=== PATIENT | female | born 1950 | race Caucasian/White ===

== ENCOUNTER 2024-04-25 07:04 | Day surgery (SDC) | payer OTHER ==
[~2024-04-25] VITALS: Ht 157.5 cm; Wt 88.9 kg
[2024-04-25] VITALS (10 sets, daily range): BP systolic 90–158; BP diastolic 45–74; PULSE 76–87; RESP 15–19; TEMP 97.3–97.6
[~2024-04-25 07:04] MED LIST: AREDS VITAMIN PO; ATOR40TA69 PO; CETI10TA57 PO; CLOP75TA32 PO; FLUT16H NASAL; HYDR-3421 PO; LEVO-172 PO; LISI40TA9 PO; METO25TA6 PO; TYLENOL ARTHRITIS PO; VITAMIN D PO
[2024-04-25] MEDS: 0.9%NACL 1000ML 1,000 ML IV ONE (09:08)
[2024-04-25] MEDS ORDERED: proPOFol 10 MG/ML 20ML VIAL IV ONE ×2 (11:23→11:36)
== END 2024-04-25 12:45 | disposition home or self-care (01) ==
LOC: DAH 07:04 → ENDO 07:04
PROVIDERS: ATTEND Internal Medicine Gastroenterology
DX: C16.2 Malignant neoplasm of body of stomach (principal); K25.0 Acute gastric ulcer with hemorrhage; K31.89 Other diseases of stomach and duodenum; I10 Essential (primary) hypertension; M19.90 Unspecified osteoarthritis, unspecified site; E78.5 Hyperlipidemia, unspecified; Z86.73 Personal history of transient ischemic attack (TIA), and cerebral infarction without residual deficits; Z90.49 Acquired absence of other specified parts of digestive tract; Z90.710 Acquired absence of both cervix and uterus; Z95.0 Presence of cardiac pacemaker
CPT/HCPCS: 43259; 43239; 43236; J7030 ×2; J2704 ×2; A4620; A4215; A4223; A7002; A4222; A4221; A4663; A4606; J3490

== ENCOUNTER 2024-06-04 09:00 | Inpatient (IN) | payer OTHER ==
[2024-06-03 13:01] LABS: BASOPHILS # (AUTO) 0.02 K/uL (0.00-0.20); BASOPHILS % (AUTO) 0.2 % (0.0-5.0); EOSINOPHILS % (AUTO) 2.2 % (0.0-8.0); HEMATOCRIT 38.3 % (36-48); IMMATURE GRANULOCYTE ABSOLUTE 0.01 K/uL (0-1); LYMPHOCYTES # (AUTO) 5.3 K/uL (1.0-4.8); MEAN CORPUSCULAR HGB CONC 32.9 g/dL (32.0-36.0); MEAN CORPUSCULAR VOLUME 94.3 fL (79-99); MONOCYTES # (AUTO) 0.6 K/uL (0.1-1.0); MONOCYTES % (AUTO) 6.7 % (3.0-13.0); NEUTROPHILS # (AUTO) 2.9 K/uL (1.8-7.7); NEUTROPHILS % (AUTO) 31.8 % (40.0-77.0); PLATELET COUNT (AUTO) 213 K/uL (130-400); RED BLOOD CELL COUNT(AUTO) 4.06 MIL/uL (4.00-5.50); RED CELL DISTRIBUTION WIDTH 13.5 % (11.0-15.5)
[2024-06-03 13:07] LABS: CREATININE 0.7 mg/dL (0.5-1.0); POTASSIUM 4.1 mmol/L (3.5-5.1)
[2024-06-03 13:11] LABS: INR 1.03 (0.85-1.15); PROTHROMBIN TIME 11.5 SEC (9.6-11.6)
[2024-06-03 13:13] LABS: PARTIAL THROMBOPLASTIN TIME 26.7 SEC (26.3-35.5)
[2024-06-03 13:14] VITALS: BP 134/68; PULSE 73; RESP 14; TEMP 98.2
[2024-06-03 14:30] LABS: EOSINOPHILS % (MANUAL) 4 % (1-6); LYMPHOCYTES % (MANUAL) 52 % (22-44); MAN.DIFF COMMENT-IMPRESSION MANUAL DIFFERENTIAL; MONOCYTES % (MANUAL) 4 % (2-9); PLATELET MORPHOLOGY COMMENT ADEQUATE; REACTIVE LYMPHOCYTES 7 % (0-0); SEGMENTED NEUTROPHILS % 33 % (40-70); TOTAL CELLS COUNTED 100
--- NOTE | 2024-06-03 15:16 | EKG ---
[facility] Test Date: 2024-06-03 Test Time: 13:32:25 Pat Name: GURVINDER SANDERS Department: Patient ID: [id number] Room: Gender: F Legal Associate: [id number] : 1950 Requested By: SUNDAR STONE Order Number: [id number] Reading MD: Miguelangel Pacheco Measurements Intervals [place] Rate: 71 P: 31 MS: 144 QRS: 13 QRSD: 86 T: 31 QT: 383 QTc: 418 Interpretive Statements Sinus rhythm Compared to ECG 06/23/2021 12:45:15 No significant changes Electronically Signed On 06-04-2024 17:06:55 [employer]AIL [employer]NAGEMENT TRAINEE by Miguelangel Pacheco Please click the below link to view image of tracing.
[~2024-06-04] VITALS: Ht 160 cm; Wt 89.8 kg
[~2024-06-04 09:00] MED LIST changes: -AREDS VITAMIN PO; -CETI10TA57 PO; -HYDR-3421 PO; -TYLENOL ARTHRITIS PO; -VITAMIN D PO
[2024-06-04] MEDS ORDERED: ACET-2521 PO (16:30)
[2024-06-04] MEDS ORDERED: CHOL200074 PO (16:30)
[2024-06-04] MEDS ORDERED: VIT1CAPS5 PO (16:30)
[2024-06-04] MEDS ORDERED: ICOS1CAP2 PO (16:30)
[2024-06-04] MEDS ORDERED: CALC-1294 PO (16:30)
[2024-06-04] MEDS ORDERED: MULT-1258 PO (16:30)
[2024-06-04] MEDS ORDERED: SUCR1TAB2 PO (16:30)
[2024-06-04] MEDS ORDERED: ASPI-1443 PO (16:30)
[2024-06-04] MEDS ORDERED: PANT40TA54 PO (16:30)
[2024-06-06] VITALS (27 sets, daily range): BP systolic 115–167; BP diastolic 57–89; PULSE 70–113; RESP 15–20; TEMP 97.3–98.4; O2SAT 98
[2024-06-06] MEDS: LACTATED RINGERS 1000ML 1,000 ML IV ONE (10:17)
[2024-06-06] MEDS: SCOPOLAMINE HYDROBROMIDE 1 EACH ADH..PATCH TD ONE (10:17)
[2024-06-06] MEDS: ceFAZolin SODIUM 2 GM VIAL ONE (10:18)
[2024-06-06] MEDS ORDERED: BUPIvacaine/PF 0.5% 30ML VIAL ONE (10:43)
[2024-06-06] MEDS ORDERED: ketaMINE 50MG/ML SYRINGE 50 MG/ML DISP.SYRIN ONE (11:28)
[2024-06-06] MEDS ORDERED: LIDOCAINE PF 100MG/5ML (2%) SYRINGE 5ML ONE (11:43)
[2024-06-06] MEDS ORDERED: proPOFol 10 MG/ML 20ML VIAL IV ONE (11:43)
[2024-06-06] MEDS ORDERED: rocuRONium bROMide 10MG/1ML 5ML VL ONE ×2 (11:43→13:29)
[2024-06-06] MEDS ORDERED: FENTanyl CITRate PF 50 MCG/1 ML 2ML VIAL ONE (11:44)
[2024-06-06] MEDS ORDERED: ondanSETRON 4MG INJ ONE (12:03)
[2024-06-06] MEDS ORDERED: dexaMETHasone SOD PHOSPHATE 10MG/ML 1ML VIAL ONE (12:03)
[2024-06-06] MEDS: ceFAZolin SODIUM 2 GM VIAL IVPB ONE (12:17)
[2024-06-06] MEDS ORDERED: NEOSTIGMINE METHYLSULFATE 1MG/ML IV ONE (12:32)
[2024-06-06] MEDS ORDERED: GLYCOPYRROLATE 0.2 MG/ML 5 ML VIAL ONE (12:32)
--- NOTE | 2024-06-06 17:25 | OP ---
Operative Note: DATE OF PROCEDURE: 06/06/24 SURGEON: SUNDAR STONE MD COP EXAMINER: Loyd Stone MD PA-C ANESTHESIA: General and Local ANESTHESIOLOGIST/COGENERATION OPERATOR: [facility] anesthesia team PREOPERATIVE DIAGNOSIS: Known Gastric Malignancy POSTOPERATIVE DIAGNOSIS: As above SYNOPSIS: Subtotal, distal gastrectomy with Bilroth II gastro-jejunostomy without complication PROCEDURE: 1. Robotic assisted Subtotal, distal gastrectomy with Bilroth II gastro-jejunostomy 2. Omental patch to duodenal stump 3. Omental patch to gastro-jejunostomy 4. EGD ESTIMATED BLOOD LOSS: min, <40cc INDICATIONS: As above DESCRIPTION OF PROCEDURE: After standard preparations a veress needle and optical trocar were used to enter the abdomen and the rest of the instruments were placed under direct vision. We used the EGD scope to assess the area of the known gastric cancer, appeared confined to the antrum. There was appearance of direct tumor invasion through the serosa in to the surrounding fatty tissue. There was not evidence of distant disease away from the local site. We began by using bipolar to resect the gastrocolic and gastrohepatic ligaments so that they would remain as part of the en bloc specimen. There was an area near the lesser curve posterior gastric wall that was quite adherent to the retroperitoneal fat. This was dissected free to allow the specimen to be fully mobilized. We utilized a linear stapler with reinforcement to divide the stomach. Proximal margin in the distal/mid gastric body. Distal margin in the area of the 1st portion of the duodenum/pylorus. The specimen was removed (wound protector was used) and sent for pathologic inspection. Frozen section demonstrated the appearance of clear distal and proximal margins with some concern for invasion past the serosa to the perigastric fat. We identified the ligament of treitz and proceeded distally along the proximal jejunum to approximately 50-60cm and brought the loop up to the distal gastric pouch. A stapled anastomosis was made. The defect left behind by the stapler was sutured closed in 2 layers. An omental patch was placed on the gastrojejunostomy. A 2nd omental patch, and fibrin sealant were placed on the duodenal stump. A drain was left in the abdomen. All instrument counts were verified as correct prior to ending the case. The fascia was closed at the specimen extraction site. EGD demonstrated patent anastomosis and healthy, well perfused gastric and jejunal mucosa. SUNDAR STONE MD Jun 06, 2024 17:24
[2024-06-06] MEDS: MEPERIDINE-PF 25 MG/ML SYG ONE ×2 (17:51→17:55)
[2024-06-06] MEDS: hydroMORPHone 0.5 MG SYG (0.5MG/0.5ML) IVP PRN (19:13)
[2024-06-06] MEDS: ketOROlac 15MG/ML VIAL (15MG/ML) IV PRN (21:02)
[2024-06-06] MEDS: ENOXAPARIN SODIUM 30 MG/0.3 ML SQ SCH (21:03)
[2024-06-06] MEDS: LACTATED RINGERS 1000ML 1,000 ML IV SCH (21:08)
[2024-06-07] VITALS (7 sets, daily range): BP systolic 115–146; BP diastolic 68–83; PULSE 95–111; RESP 18–20; TEMP 98.4–99.1; O2SAT 94–97
--- NOTE | 2024-06-07 00:31 | NUR ---
pt in pain and unable to perform IS Addendum: 06/07/24 at 0032 by RULA SUAREZ RT RT Amended: Links added.
[2024-06-07] MEDS: SUGAMMADEX SODIUM 200 MG/2 ML VIAL IV ONE (09:10)
[2024-06-07] MEDS: FAMOTIDINE 20MG VIAL IV ONE (09:10)
[2024-06-07] MEDS: acetaMINOPHEN 100 ML ONE (09:10)
[2024-06-07] MEDS ORDERED: DIATR MEGLU/DIATRIZOATE SODIUM 30 ML BOTTLE ONE (09:11)
[2024-06-07] MEDS: FAMOTIDINE 20MG VIAL IV SCH (09:11)
[2024-06-07] MEDS: ENOXAPARIN SODIUM 30 MG/0.3 ML SQ SCH (09:17)
--- NOTE | 2024-06-07 09:36 | PN ---
GENERAL SURGERY PROGRESS NOTE Date/Time Patient Seen: [June 07, 2024 at 9:15 a.m. ] Problem List: [ ] Interval History: [ The patient is a pleasant 74-year-old female status post robotic assisted subtotal, distal gastrectomy with Billroth II gastrojejunostomy, omental patch to duodenal stump and omental patch to gastric jejunostomy. The patient is accompanied by family. The patient tolerated the procedure well. Currently with a PAULETTE drain to the right upper quadrant in place draining over 50 cc of serosanguineous fluid overnight. The patient is currently NPO and is pending upper GI series study. The patient endorses pain 8/10 to the epigastric region as well as incisional pain. The patient is currently cycling through pain medications without much improvement. The patient has been voiding and has not had any oral intake of fluids due to nausea. The patient endorses dizziness and fatigue likely associated with poor oral intake and hydration. No other concerns.] Current Medications Medications (Trade) Dose Ordered Sig/Radha Route Start Time Stop Time Status Last Admin Dose Admin Enoxaparin Sodium (Lovenox) 30 mg Q12H SQ 06/06/24 16:00 06/07/24 03:41 DC 06/06/24 21:03 30 MG Enoxaparin Sodium (Lovenox) 30 mg Q12H SQ 06/07/24 09:00 07/07/24 08:59 06/07/24 09:17 30 MG Famotidine (Pepcid 20mg Vial) 20 mg BID IV 06/07/24 09:00 07/07/24 08:59 06/07/24 09:11 20 MG Lactated Ringer's 1,000 ml @ 100 mls/hr Q10H IV 06/06/24 16:00 07/06/24 15:59 06/07/24 05:49 100 MLS/HR Physical Examination: GENERAL: [No acute distress.] HEAD: [Normal with no signs of head trauma.] EYES: [PERRLA, EOMI, conjunctiva and sclera normal.] ENT: [Hearing grossly intact, normal oropharynx.] NECK: [Supple without JVD. There is no tenderness, lymphadenopathy, or masses. No thyromegaly. Normal carotid upstrokes without bruits.] LUNGS: [Clear breath sounds bilaterally. There are right basilar rales one third of the way up the chest. No wheezes, or rhonchi.] HEART: [Normal rate and rhythm. Normal S1 and S2 without mumurs, gallop or rub.] VASC: [Peripheral pulses +2 bilaterally.] ABD: [Bowel sounds normal, soft, nontender, no masses, no organomegaly. No audible bruits.] : [Not examined] LYMPH: [No lymphadenopathy noted.] EXT: [No clubbing, cyanosis or edema.] SKIN: [No rashes or lesions noted.] NEURO: [Awake, alert, and oriented x3. No focal sensory or strength deficits noted.] Vital Signs (last 8hr) Date Time Temp Pulse Resp B/P (MAP) Pulse Ox O2 Delivery O2 Flow Rate FiO2 06/07/24 08:00 98.4 103 18 115/76 97 06/07/24 03:54 98.4 107 20 119/70 93 Room Air Laboratory: [ ] Impression and Plan: [ The patient is postoperative day 1. The patient is progressing slowly but well. We will continue to monitor and treat pain as needed. GI/DVT prophylaxis recommended and encouraged. Continue SCDs, assisted ambulation, and incentive spirometry. Advance to a liquid diet after upper GI series study complete. Due to pain out of proportion and pending upper GI series study I recommend we keep the patient overnight for observation. We will monitor PAULETTE drain output, upper GI results and pain management. We will follow up with the patient tomorrow to consider next steps. ] ADELA DUNHAM Jun 07, 2024 09:36
[2024-06-07] MEDS: HYDROcod/acetaMINOPHEN 7.5/325 MG 15 ML UDCUP PO PRN (10:21)
[2024-06-07] MEDS: ondanSETRON 4MG INJ IVP PRN (10:21)
--- NOTE | 2024-06-07 11:44 | HMCIMG ---
UPPER GI TRACT, WO KUB REASON: r/o leak s/p subtotal gastrectomy for gastric cancer. COMPARISON: None TECHNIQUE: Gastrografin enema study was performed. FINDINGS: There is no obstruction to the antegrade passage of Gastrografin from mild through jejunum. A normal esophageal stripping with is seen. There is small hiatal hernia. Gastroesophageal reflux is seen to level of mid thoracic esophagus. Deformity of stomach is seen consistent with patient history of subtotal gastrectomy. Duodenal sweep is not occluded. Minimal dilatation is seen. IMPRESSION: No obstruction is seen. No leakage is seen.
[2024-06-07] MEDS: PROCHLORPERAZINE 10MG/2ML INJ IV PRN (14:13)
--- NOTE | 2024-06-07 15:46 | HMCIMG ---
ABD 1VW HISTORY: Abdominal pain COMPARISON: None FINDINGS: A frontal projection of the abdomen was obtained. Mild small bowel dilatation is seen. Post cholecystectomy changes are seen. Fecal material is seen in the colon. Degenerative changes of the thoracolumbar spine are noted. IMPRESSION: 1. Mild small bowel dilatation is seen.
--- NOTE | 2024-06-07 16:50 | NUR ---
Discharge Planning: Pt. states she lives with her granddaughter Anna Khan. Contact number is . Pt. states her granddaughter is also her provider for 22 hours weekly. No home health sevices. Ambulates with a walker, no other DME. PCP is Margarette Rees, and preferred [facility] [place]. DCP is for home. No d/c needs at this time. Addendum: 06/07/24 at 1654 by SANDRA SAAB RN CM Amended: Links added.
[2024-06-07] MEDS: metoPROLOL tartRATE 25 MG TAB PO SCH (20:39)
[2024-06-07] MEDS: atorVAStatin 40 MG TABLET PO SCH (20:39)
[2024-06-07] MEDS: (Vit A/Vit C/Vit E/Zinc/Copper (Preservision Areds Softgel PO SCH (20:42)
[2024-06-07] MEDS: ICOSAPENT ETHYL 2 GM PO SCH (20:42)
[2024-06-08 00:49] VITALS: BP 140/76; PULSE 80; RESP 18; TEMP 98.7
[2024-06-08 05:23] VITALS: BP 149/77; PULSE 84; RESP 19; TEMP 99.5
[2024-06-08] MEDS: levoTHYROxine 100 MCG TABLET PO SCH (06:05)
[2024-06-08] MEDS: SUCRALFATE 1 GM TABLET PO SCH (06:36)
[2024-06-08 08:00] VITALS: BP 141/67; PULSE 86; RESP 18; TEMP 99
[2024-06-08 08:35] VITALS: O2SAT 96
[2024-06-08] MEDS: LISINOPRIL 40 MG TABLET PO SCH (08:35)
[2024-06-08] MEDS: PANTOPrazole 40 MG TAB DR PO SCH (08:35)
[2024-06-08] MEDS: LYCOPENE PO SCH (08:42)
[2024-06-08] MEDS: LUT PO SCH (08:42)
[2024-06-08] MEDS: [UNRECOGNIZED DRUG - OTHER] PO SCH (08:42)
[2024-06-08] MEDS: VITAMIN D3 PO SCH (08:42)
[2024-06-08] MEDS: MULTIVITS MIN PO SCH (08:42)
[2024-06-08] MEDS: CALCIUM CARBONATE PO SCH (08:42)
[2024-06-08] MEDS: (Cholecalciferol (Vitamin D3) (Vitamin D3) 50 MCG) PO SCH (08:42)
--- NOTE | 2024-06-08 11:17 | DS ---
Problems: (1) Gastric cancer Discharge Summary Assessment The patient is postoperative day 2 of a robotic assisted subtotal, distal gastrectomy with Billroth 2 gastrojejunostomy and omental patches x2. The patient tolerated the procedure well. The patient underwent an upper GI series and a KUB which were unremarkable. The patient has been ambulating, tolerating oral liquid diet well. Vital signs remained stable patient clinically stable. Patient has been passing gas and voiding freely. The patient endorses pain that is tolerable with p.r.n. medication. Hospital Course The patient is status post a robotic assisted subtotal distal gastrectomy with Billroth II gastrojejunostomy and omental patch is x2. The patient is progressing well. We will continue to monitor and treat pain. Continue GI/DVT prophylaxis. Incision care, hydration, activity and dietary restrictions discussed with the patient. The plan is to discharge the patient home today and follow up outpatient in 5-7 days. The patient understands and agrees. ADELA DUNHAM Jun 08, 2024 11:17
[2024-06-08 12:00] VITALS: BP 142/82; PULSE 78; RESP 18; TEMP 98.9
--- NOTE | 2024-06-08 12:19 | NUR ---
DISCHARGE PIV DC'D DISCHARGE INSTRUCTIONS GIVEN TO THE PATIENT AND HER DAUGHTER PATIENT HAS A FOLLOW UP APPOINTMENT IN ONE WEEK WITH DR. STONE PATIENT IS AWARE THAT THE HER PRESCRIPTIONS WERE SENT FROM DR. STOEN'S OFFICE PATIENT AND DAUGHTER WERE EDUCATED ON HOW TO EMPTY THE PAULETTE DRAIN AND TO MEASURE THE OUTPUT PATIENT AND DAUGHTER WERE TAUGHT ON HOW TO KEEP THE SITE CLEAN ALL QUESTIONS WERE ANSWERED PRIOR TO DISCHARGE
== END 2024-06-08 12:20 | disposition home or self-care (01) | DRG 328 ==
LOC: DAHIP 06-06 09:15 → 3DH 06-06 19:07
PROVIDERS: ADMIT Surgery; ATTEND Surgery
PROC: 8E0W4CZ Robotic Assisted Procedure of Trunk Region, Percutaneous Endoscopic Approach (ICD-10-PCS; 2024-06-06)
PROC: 0DB60ZZ Excision of Stomach, Open Approach (ICD-10-PCS; principal; 2024-06-06 12:00)
PROC: 0DJ08ZZ Inspection of Upper Intestinal Tract, Via Natural or Artificial Opening Endoscopic (ICD-10-PCS; 2024-06-06 12:00)
DX: C16.9 Malignant neoplasm of stomach, unspecified (principal); Z79.899 Other long term (current) drug therapy
CPT/HCPCS: 36415; 43235; 74018; 74240; 80048; 85025; 85610; 85730; 86850; 86900; 86901; 93005; A4351; G0378; J0780; J1100; J1171; J1650; J1885; J2003; J2175; J2405; J2704; J2710; J3010; J3490; J7120; Q9963; A4215; A4216; A4221; A4222; A4223; A4600; A4663; A4930; A6260; C9250; J0665; J0690

== ENCOUNTER 2024-09-03 18:05 | Emergency (ER) | payer OTHER, MEDICARE ==
[~2024-09-03] VITALS: Ht 152.4 cm; Wt 75.3 kg
[~2024-09-03 18:05] MED LIST changes: +ACET-2027 PO; +ANTI1CAP5 PO; +ASPI-1197 PO; +CALC-1294 PO; +CETI10TA87 PO; +CHOL200074 PO; +FLUT15.845 NS; -FLUT16H NASAL; +ICOS1CAP2 PO; +LACT-441 PO; -LEVO-172 PO; +LEVO100T12 PO; -LISI40TA9 PO; +METO-408 PO; +METO10TA3 PO; -METO25TA6 PO; +MULT-1250 PO; +ONDA-243 PO; +PANT40TA54 PO; +SUCR1TAB2 PO
--- NOTE | 2024-09-03 18:25 | EKG ---
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
[2024-09-03 18:40] LABS: BASOPHILS # (AUTO) 0.02 K/uL (0.00-0.20); BASOPHILS % (AUTO) 0.2 % (0.0-5.0); EOSINOPHILS # (AUTO) 0.03 K/uL (0.00-0.70); EOSINOPHILS % (AUTO) 0.3 % (0.0-8.0); HEMATOCRIT 37.3 % (36-48); IMMATURE GRANULOCYTE ABSOLUTE 0.04 K/uL (0-1); LYMPHOCYTES # (AUTO) 3.5 K/uL (1.0-4.8); LYMPHOCYTES % (AUTO) 33.7 % (21.0-51.0); MEAN CORPUSCULAR HEMOGLOBIN 27.6 pg (27.0-33.0); MEAN CORPUSCULAR HGB CONC 32.7 g/dL (32.0-36.0); MEAN CORPUSCULAR VOLUME 84.4 fL (79-99); MONOCYTES # (AUTO) 0.9 K/uL (0.1-1.0); MONOCYTES % (AUTO) 8.6 % (3.0-13.0); NEUTROPHILS # (AUTO) 5.9 K/uL (1.8-7.7); NEUTROPHILS % (AUTO) 56.8 % (40.0-77.0); PLATELET COUNT (AUTO) 300 K/uL (130-400); RED BLOOD CELL COUNT(AUTO) 4.42 MIL/uL (4.00-5.50); RED CELL DISTRIBUTION WIDTH 15.9 % (11.0-15.5); WHITE BLOOD COUNT (AUTO) 10.3 K/uL (4.8-10.8)
[2024-09-03 18:49] LABS: CREATININE 0.7 mg/dL (0.5-1.0); POTASSIUM 3.4 mmol/L (3.5-5.1)
[2024-09-03 18:54] LABS: ALBUMIN 3.2 g/dL (3.5-5.0); BILIRUBIN,DIRECT 0.1 mg/dL (0.0-0.3); BILIRUBIN,TOTAL 0.3 mg/dL (0.2-1.0); TOTAL PROTEIN, SERUM 7.2 g/dL (6.0-8.3)
--- NOTE | 2024-09-03 19:43 | ERN ---
ED Note History of Present Illness Stated Complaint: N/V Chief Complaint: Nausea,Vomiting,Diarrhea Time Seen by MD: 18:15 Time Seen by Midlevel: 18:20 Dictation: 74-year-old female with a history of malignant neoplasm of the stomach any gastric resection coming in complaining of nausea and vomiting. Patient was recently seen here on 08/28 and was recently discharged on 09/01. As per daughter patient has been having nausea and vomiting since she left the hospital. Patient was currently receiving chemotherapy via chest port. States dubon already spoke to her oncologist and has not appointment tomorrow. Patient today has taking a scopolamine patch, Zofran and promethazine. Allergies: Coded Allergies: No Known Drug Allergies (Unverified Allergy, Unknown, 06/24/21) Home Meds Active Scripts Ondansetron (Ondansetron Odt) 4 Mg Tab.rapdis, 4 MG PO TID PRN for VOMITING, #15 TAB 0 Refills Prov:RASHEED CASTELLON MD 08/31/24 Lactulose (Lactulose) 10 Gram/15 Ml Solution, 30 ML PO BID PRN for CONSTIPATION, #500 ML 0 Refills Prov:RASHEED CASTELLON MD 08/31/24 Reported Medications Fluticasone Propionate (Fluticasone Propionate) 50 Mcg/Actuation [place].susp, 2 SPRAY NS DAILY, #16 GM 0 Refills 08/11/24 Acetaminophen (Arthritis Pain Reliever) 650 Mg Tablet.er, 650 MG PO DAILY PRN for PAIN LEVEL 1 TO 5, TAB 08/10/24 Aspirin (Aspirin) 81 Mg Tab.chew, 1 TAB PO DAILY for 30 Days, #30 TAB 0 Refills 08/10/24 Metoclopramide HCl (Metoclopramide HCl) 10 Mg Tablet, 1 TAB PO DAILY PRN for nausea for 30 Days, #120 TAB 0 Refills 08/10/24 Metoprolol Succinate (Metoprolol Succinate) 25 Mg Tab.er.24h, 1 TAB PO DAILY for 30 Days, #30 TAB 0 Refills 08/10/24 Sucralfate (Sucralfate) 1 Gram Tablet, 1 TAB PO TID for 30 Days, #120 TAB 0 Refills 08/10/24 Levothyroxine Sodium (Levothyroxine Sodium) 100 Mcg Tablet, 1 TAB PO ACBKFST for 30 Days, #30 TAB 0 Refills 08/10/24 Atorvastatin Calcium (LIPITOR) 40 Mg Tablet, 1 TAB PO HS for 30 Days, #30 TAB 0 Refills 08/10/24 Pantoprazole Sodium (Pantoprazole Sodium) 40 Mg Tablet.dr, 1 TAB PO DAILY for 30 Days, #30 TAB 0 Refills 08/10/24 Icosapent Ethyl (Icosapent Ethyl) 1 Gram Capsule, 1 GM PO BID, CAP 08/10/24 Clopidogrel Bisulfate (Clopidogrel) 75 Mg Tablet, 1 TAB PO DAILY for 30 Days, #30 TAB 0 Refills 08/10/24 Antiox #11/Om3/Dha/Epa/Lut/Otoniel (Eye Health Adult 50+ Softgel) 250 Mg (90 Mg-160 Mg)-5 Mg-1 Mg Capsule, 1 EACH PO BID, CAP 08/10/24 Multivit-Min/Iron/FA/Vit K/Lut (Centrum Silver Women Tablet) 8 Mg Iron-400 Mcg- 50 Mcg-300 Mcg Tablet, 1 TAB PO DAILY for 30 Days, #30 TAB 0 Refills 08/10/24 Cetirizine HCl (Cetirizine HCl) 10 Mg Tab.chew, 1 TAB PO DAILY for allergy symptoms for 30 Days, #30 TAB 0 Refills 08/10/24 Calcium Carbonate/Vitamin D3 (Calcium 600 mg-D3 20 Mcg Cplt) 600 Mg Calcium-20 Mcg (800 Unit) Tablet, 1 EACH PO DAILY, TAB 06/04/24 Cholecalciferol (Vitamin D3) (Vitamin D3) 50 Mcg (2000 Unit) Capsule, 50 MCG PO DAILY, CAP 06/04/24 Past Medical History Past Medical History: CAD, Cancer, High Cholesterol, Hypertension, Hypothyroid, Other Additional Past Medical Hx: STOMACH CA Surgical History: Other Review of System Dictation Constitutional: Negative for fever,chills, and weight loss Eyes: Negative for injury, pain,redness, and discharge ENT: Negative for injury,pain or swelling Cardiovascular: Negative for chest pain, palpitations, and edema Respiratory: Negative for shortness of breath, cough, and wheezing, Abdomen/GI: Negative for abdominal pain, positive for nausea and vomiting, no diarrhea, and no constipation Back: Negative for injury and pain : Negative for injury, bleeding and discharge MS/Extremity: Negative for injury and deformity Skin: Negative for rash, and discoloration Neuro: Negative for headache, weakness, numbness, tingling, and seizure Psych: Negative for suicide ideation, homicidal ideation, and hallucinations Review of Systems: was completed Initial Vital Sign VS Vital Signs Date Time Temp Pulse Resp B/P (MAP) Pulse Ox O2 Delivery O2 Flow Rate FiO2 09/03/24 18:08 98.8 103 18 137/87 97 Physical Exam Dictation General: awake, alert, NAD Head/Face: Normocephalic, atraumatic Eyes: PERRL, EOMI, vision at baseline ENT: oral cavity clear, TMs clear, no signs of infection Neck: Trachea midline, supple, no nuchal rigidity Cardiovascular: RRR, normal S1/S2, No MRGs, no JVD Respiratory: CTAB, no respiratory distress, No rales or wheezes Abdomen: Soft, non-tender, non-distended, normal bowel sounds, no guarding or rebound. Skin: Warm, dry, normal turgor, no rash MS/Extremity: Pulses equal, no cyanosis, neurovascular intact, FROM Neuro: COAx4, GCS 15, strength 5/5, CN 2-12 intact, normal cerebellar exam, normal gait, Psych: Normal behavior, mood, and affect normal Results (Laboratory/Radiology) Laboratory/Radiology Laboratory Tests Test 09/03/24 18:31 White Blood Count 10.3 K/uL (4.8-10.8) Red Blood Count 4.42 MIL/uL (4.00-5.50) Hemoglobin 12.2 g/dL (12.0-16.0) # Hematocrit 37.3 % (36-48) Mean Corpuscular Volume 84.4 fL (79-99) Mean Corpuscular Hemoglobin 27.6 pg (27.0-33.0) Mean Corpuscular Hemoglobin Concent 32.7 g/dL (32.0-36.0) Red Cell Distribution Width 15.9 % (11.0-15.5) H Platelet Count 300 K/uL (130-400) Mean Platelet Volume 10.5 fL (7.5-10.5) Immature Granulocyte % (Auto) 0.4 % (0-1) Neutrophils (%) (Auto) 56.8 % (40.0-77.0) Lymphocytes (%) (Auto) 33.7 % (21.0-51.0) Monocytes (%) (Auto) 8.6 % (3.0-13.0) Eosinophils (%) (Auto) 0.3 % (0.0-8.0) Basophils (%) (Auto) 0.2 % (0.0-5.0) Neutrophils # (Auto) 5.9 K/uL (1.8-7.7) Lymphocytes # (Auto) 3.5 K/uL (1.0-4.8) Monocytes # (Auto) 0.9 K/uL (0.1-1.0) Eosinophils # (Auto) 0.03 K/uL (0.00-0.70) Basophils # (Auto) 0.02 K/uL (0.00-0.20) Absolute Immature Granulocyte (auto 0.04 K/uL (0-1) Nucleated Red Blood Cells 0.0 % (0.0-0.19) Sodium Level 137 mmol/L (136-145) Potassium Level 3.4 mmol/L (3.5-5.1) L Chloride Level 102 mmol/L (101-111) Carbon Dioxide Level 27 mmol/L (21-32) Blood Urea Nitrogen 8 mg/dL (7-18) Creatinine 0.7 mg/dL (0.5-1.0) Glomerular Filtration Rate Calc 90 mL/min (>90) Random Glucose 106 mg/dL (70-105) H Total Calcium 7.4 mg/dL (8.5-10.1) L Total Bilirubin 0.3 mg/dL (0.2-1.0) Direct Bilirubin 0.1 mg/dL (0.0-0.3) Aspartate Amino Transf (AST/SGOT) 47 U/L (10-37) H Alanine Aminotransferase (ALT/SGPT) 53 U/L (12-78) Alkaline Phosphatase 90 U/L (50-136) Total Protein 7.2 g/dL (6.0-8.3) Albumin 3.2 g/dL (3.5-5.0) L Lipase 26 U/L (16-77) Labs Reviewed?: Yes EKG Comment: EKGs done at 6:23 p.m., sinus tachycardia at a rate of 101. No STEMI interpreted by ER CT Scan Comment: [place] [address] [place] [id number] IMAGING REPORT Signed PATIENT: GURVINDER SANDERS MR#: [id number] : 1950 SEX: F AGE: 74 LOCATION: [facility] ORDER 18 STATUS: REG REPORT#: [id number] SERVICE 17 REASON: n/v, hx gastric ca ORDERING PHYSICIAN: MENDOZA BROWN NP PROCEDURE: ABD PEL W - CT ABDOMEN/PELVIS W/CONTRAST Exam Type: CT ABDOMEN/PELVIS W/CONTRAST Clinical Information: n/v, hx gastric ca Comparison: None Contrast: 100 cc's Isovue 370 IV, no complications or adverse reactions CT Dose Index (CTDI): 31.60 mGy Dose Length Product (DLP): 1740.80 total mGy-cm Findings: No evidence of nephro or ureterolithiasis is found. No hydronephrosis or ureteral dilatation is seen. The lung bases are clear. 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 There is mild ascites. The spleen is unremarkable. It is not enlarged. The pancreas shows normal anatomy. It is not fatty replaced. It shows no lesions. The pancreatic duct is not dilated. The gallbladder is surgically absent. The adrenal glands are unremarkable. There is no enlargement. No lesions are noted. The liver is unremarkable. It shows no focal masses. The appendix is unremarkable. It shows no evidence of inflammation. No appendicolith is seen. The small bowel is unremarkable. There is no evidence of dilatation to suggest obstruction. No evidence of adynamic ileus is seen. There is no small bowel wall thickening to suggest enteritis. There is diverticulosis. There is no evidence of acute inflammation to suggest diverticulitis. The colon is otherwise unremarkable. 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 The urinary bladder is unremarkable. There is no wall thickening to suggest tumor or inflammation. There are no intraluminal calculi. There are no diverticula. There is no evidence of chronic bladder outlet obstruction. There is no evidence of urinary bladder distention to suggest urinary retention. The other pelvic structures are unremarkable. The bony and vascular structures are unremarkable for the patient's age. IMPRESSION: Postoperative changes of the stomach. Ascites. No definite local recurrence or metastatic disease evidence or suspicion otherwise. Other findings as described. This study was performed using dose reduction techniques to include automated exposure control and/or adjustment of the mA and/or kV according to patient size. DICTATED BY: LULA NDIAYE MD DATE: 09/03/242049 ELECTRONICALLY SIGNED BY: LULA NDIAYE MD DATE: 09/03/242054 ED Course ED Course Orders Procedure Category Date Status Time Cbc With Differential LAB 09/03/24 Complete 18:18 Basic Metabolic Panel LAB 09/03/24 Complete 18:18 Lipase LAB 09/03/24 Complete 18:18 Hepatic Function Panel LAB 09/03/24 Complete 18:18 12 Lead Ekg Tracing- EKG 09/03/24 Complete Technical 18:18 Ct Abdomen/Pelvis CT 09/03/24 Resulted W/Contrast 18:18 0.9%Nacl 1000ml (Ns PHA 09/03/24 Complete 1000ml) 18:19 Pantoprazole 40mg Inj PHA 09/03/24 Complete (Protonix 40mg Inj 18:59 Ondansetron 4mg Inj PHA 09/03/24 Complete (Zofran 4mg Inj) 19:52 Iohexol (Omnipaque) PHA 09/03/24 Complete 20:23 Current Medications Medications (Trade) Dose Ordered Sig/Radah Route PRN Reason Start Time Stop Time Status Last Admin Dose Admin Iohexol (Omnipaque) 75 ml STK-MED ONCE IV 09/03/24 20:23 09/03/24 20:23 DC Ondansetron HCl (zoFRAN 4MG INJ) 8 mg ONCE STAT IVP 09/03/24 19:52 09/03/24 19:54 DC 09/03/24 20:08 Pantoprazole Sodium (PROTonix 40MG INJ) 40 mg ONCE STAT IVP 09/03/24 18:59 09/03/24 19:05 DC 09/03/24 20:08 Sodium Chloride 1,000 ml @ 1,000 mls/hr Q1H STAT IV 09/03/24 18:19 09/03/24 19:18 DC 09/03/24 20:08 Vital Signs Date Time Temp Pulse Resp B/P (MAP) Pulse Ox O2 Delivery O2 Flow Rate FiO2 09/03/24 18:08 98.8 103 18 137/87 97 Medical Decision Making MDM MDM: 74-year-old female with a history of malignant neoplasm of the stomach any gastric resection coming in complaining of nausea and vomiting. Patient was recently seen here on 08/28 and was recently discharged on 09/01. As per daughter patient has been having nausea and vomiting since she left the hospital. Patient was currently receiving chemotherapy via chest port. States a already spoke to her oncologist and has not appointment tomorrow. Patient today has taking a scopolamine patch, Zofran and promethazine.CBC shows no leukocytosis, no anemia, no thrombocytopenia. Chemistry shows mild hypokalemia at 3.4. Normal sodium. Normal kidney function. CT of the abdomen and pelvis shows diverticulosis but no diverticulitis, no wall thickening, no bladder obstruction, no small bowel obstruction. No acute findings. Patient received eight of Zofran and 1 L of fluids. Patient has not had a emesis episode here in the emergency room. Discussed with the patient that she needs to keep her appo intment tomorrow with her oncologist as she might need an adjustment to her chemotherapy or her antiemetic medications. Discussed with the patient to come back to the ER if she has any worsening symptoms. Differential diagnosis: Chemotherapy side effect, SBO, dehydration Rationale: Tests considered and ordered secondary to shared decision making include: Previous outside records reviewed: Old ER visits. Risk of complication and/or morbidity or mortality of patient management: None Medications-Per medication reconciliation Need for hospitalization: Patient does not meet criteria for hospitalization. Need for emergency major/minor surgery: No There are no social concerns with this patient. Prescription drug management Prescriptions will include symptomatic care Patient's prior external medical records from other ER visits were reviewed by me as indicated. Prior testing and results from previous visits were reviewed. Prior tests were taken into account with medical decision making and resource utilization, independent historian/historians were used to obtain complete medical history. I independently interpreted the test that were performed, results were reviewed by me and considered findings on radiology if ordered. Medical management and examination interpretation discussions were had by me with other qualified healthcare professionals as indicated for the patient's care. DX & DISP Disposition: Discharge Departure Impression: Primary Impression: Gastric cancer Additional Impression: Nausea and vomiting Condition: Stable Additional Instructions: Please follow up with your oncologist. Return to the hospital if any worsening symptoms. Stay hydrated drink small sips of water frequent versus at large amount of fluid one at a time Referrals: KULDEEP POWER (PCP) Time of Disposition: 21:40 I have reviewed the case, and I agree with, Diagnosis and Plan MENDOZA BROWN NP Sep 03, 2024 19:43
[2024-09-03] MEDS: PANTOPrazole 40 MG/VIAL IVP STA (20:08)
[2024-09-03] MEDS: ondanSETRON 4MG INJ IVP STA (20:08)
[2024-09-03] MEDS: 0.9%NACL 1000ML 1,000 ML IV STA (20:08)
[2024-09-03] MEDS ORDERED: IOHEXOL-350 75 ML VIAL IV ONE (20:23)
--- NOTE | 2024-09-03 20:55 | HMCIMG ---
Exam Type: CT ABDOMEN/PELVIS W/CONTRAST Clinical Information: n/v, hx gastric ca Comparison: None Contrast: 100 cc's Isovue 370 IV, no complications or adverse reactions CT Dose Index (CTDI): 31.60 mGy Dose Length Product (DLP): 1740.80 total mGy-cm Findings: No evidence of nephro or ureterolithiasis is found. No hydronephrosis or ureteral dilatation is seen. The lung bases are clear. 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 There is mild ascites. The spleen is unremarkable. It is not enlarged. The pancreas shows normal anatomy. It is not fatty replaced. It shows no lesions. The pancreatic duct is not dilated. The gallbladder is surgically absent. The adrenal glands are unremarkable. There is no enlargement. No lesions are noted. The liver is unremarkable. It shows no focal masses. The appendix is unremarkable. It shows no evidence of inflammation. No appendicolith is seen. The small bowel is unremarkable. There is no evidence of dilatation to suggest obstruction. No evidence of adynamic ileus is seen. There is no small bowel wall thickening to suggest enteritis. There is diverticulosis. There is no evidence of acute inflammation to suggest diverticulitis. The colon is otherwise unremarkable. 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 The urinary bladder is unremarkable. There is no wall thickening to suggest tumor or inflammation. There are no intraluminal calculi. There are no diverticula. There is no evidence of chronic bladder outlet obstruction. There is no evidence of urinary bladder distention to suggest urinary retention. The other pelvic structures are unremarkable. The bony and vascular structures are unremarkable for the patient's age. IMPRESSION: Postoperative changes of the stomach. Ascites. No definite local recurrence or metastatic disease evidence or suspicion otherwise. Other findings as described. This study was performed using dose reduction techniques to include automated exposure control and/or adjustment of the mA and/or kV according to patient size.
[2024-09-03 22:15] VITALS: BP 130/85; PULSE 96; RESP 17; TEMP 98.5; O2SAT 96
== END 2024-09-03 22:16 | disposition home or self-care (01) ==
LOC: EDH 18:05
DX: C16.9 Malignant neoplasm of stomach, unspecified (principal); R11.2 Nausea with vomiting, unspecified; E03.9 Hypothyroidism, unspecified; E78.00 Pure hypercholesterolemia, unspecified; I10 Essential (primary) hypertension; I25.10 Atherosclerotic heart disease of native coronary artery without angina pectoris; Z79.02 Long term (current) use of antithrombotics/antiplatelets; Z79.82 Long term (current) use of aspirin; Z79.899 Other long term (current) drug therapy; Z85.028 Personal history of other malignant neoplasm of stomach
CPT/HCPCS: 36415; 74177; 80048; 80076; 83690; 85025; 93005; 96374; 96375; 99285; J2405; J2470; J7030; Q9967